=== PATIENT | male | born 1980 | race Two or more races ===

== ENCOUNTER 2023-05-05 18:40 | Emergency (ER) | payer BC ==
[~2023-05-05] VITALS: Ht 165.1 cm; Wt 73.1 kg
[2023-05-05 18:51] VITALS: BP 134/95; PULSE 118; RESP 18; O2SAT 98
[2023-05-05 19:46] LABS: Basophils # (auto) 0 10 ^3/uL (0-0.2); Basophils % (auto) 0.3 % (0.0-2.0); Eosinophils # (auto) 0.1 10 ^3/uL (0-0.8); Hematocrit 47.3 % (41.0-53.0); Hemoglobin 16.7 g/dL (13.5-17.5); Lymphocytes # (auto) 1.2 10 ^3/uL (0.4-5.4); Lymphocytes % (auto) 11.1 % (10.0-50.0); Mean Corpuscular Hgb Conc. 35.3 g/dL (32.0-36.0); Mean Corpuscular Volume 93.4 fL (80.0-100.0); Monocytes # (auto) 0.4 10 ^3/uL (0-1.3); Neutrophils % (auto) 83.6 % (37.0-80.0); Nucleated Red Blood Cells % 0.2 %; Red Blood Cells 5.07 10^6/uL (4.5-5.90); Red Cell Distribution Width 12.6 % (11.8-14.3); White Blood Cell 10.8 10^3/uL (4.4-10.8)
[2023-05-05 19:52] LABS: Chloride 102 mmol/L (98-107); Sodium 137 mmol/L (136-145)
[2023-05-05 19:53] LABS: Anion Gap 7 (5-15); Calcium 9.8 mg/dL (8.5-10.1); Carbon Dioxide 28 mmol/L (20-30)
[2023-05-05 19:58] LABS: BUN/Creatinine Ratio 11.7 (10.0-20.0); Blood Urea Nitrogen 9 mg/dL (9-23); Glucose 89 mg/dL (74-106)
[2023-05-05 21:00] LABS: Urine WBC None Seen /hpf (0 - 3)
[2023-05-05] MEDS ORDERED: KETOROLAC TROMETH 30 MG/ML 1ML VIAL IM ONE (21:00)
[2023-05-05 21:25] LABS: Urine Bacteria NONE SEEN /hpf (None Seen); Urine Blood Negative /uL (Negative); Urine Clarity Clear (Clear); Urine Color Yellow (Yellow); Urine Protein, UAD Negative (Negative); Urine Specific Gravity 1.013 (1.001-1.035); Urine Urobilinogen Normal (Negative)
[2023-05-05] MEDS ORDERED: MET500T PO (21:29)
[2023-05-05] MEDS ORDERED: CIPR-173 PO (21:29)
[2023-05-05] MEDS ORDERED: HYDR-4902 PO (21:31)
[2023-05-05] MEDS ORDERED: ZOFR4T PO (21:32)
== END 2023-05-06 00:41 | disposition home or self-care (01) ==
LOC: ER 18:40
DX: K57.32 Diverticulitis of large intestine without perforation or abscess without bleeding (principal); N20.0 Calculus of kidney; Z79.899 Other long term (current) drug therapy
CPT/HCPCS: 36415; 71250; 74176; 80048; 81001; 85025

== ENCOUNTER 2024-01-27 12:09 | Inpatient (IN) | payer BC ==
[~2024-01-27] VITALS: Ht 165.1 cm; Wt 70.7 kg
[~2024-01-27 12:09] MED LIST: CIPR-173 PO; HYDR-4902 PO; MET500T PO; ZOFR4T PO
[2024-01-27 13:46] LABS: Basophils # (auto) 0.1 10 ^3/uL (0-0.2); Basophils % (auto) 0.9 % (0.0-2.0); Eosinophils # (auto) 0.1 10 ^3/uL (0-0.8); Eosinophils % (auto) 2.2 % (0.0-7.0); Hematocrit 49.3 % (41.0-53.0); Hemoglobin 17.5 g/dL (13.5-17.5); Lymphocytes # (auto) 1.9 10 ^3/uL (0.4-5.4); Lymphocytes % (auto) 28.9 % (10.0-50.0); Mean Corpuscular Hemoglobin 33.9 pg (28.0-32.0); Mean Corpuscular Hgb Conc. 35.5 g/dL (32.0-36.0); Mean Corpuscular Volume 95.5 fL (80.0-100.0); Monocytes # (auto) 0.5 10 ^3/uL (0-1.3); Monocytes % (auto) 7.2 % (0.0-12.0); Neutrophils % (auto) 60.8 % (37.0-80.0); Nucleated Red Blood Cells % 0.2 %; Platelet Count (auto) 219 10^3/uL (140-450); Red Blood Cells 5.16 10^6/uL (4.5-5.90); Red Cell Distribution Width 12.3 % (11.8-14.3); White Blood Cell 6.6 10^3/uL (4.4-10.8)
[2024-01-27 14:11] LABS: Albumin 4.6 g/dL (3.2-4.8); Alkaline Phosphatase 101 U/L (46-116); Anion Gap 7 (5-15); Aspartate Aminotransferase 26 U/L (13-40); BUN/Creatinine Ratio 11.7 (10.0-20.0); Blood Urea Nitrogen 11 mg/dL (9-23); Carbon Dioxide 29 mmol/L (20-31); Chloride 104 mmol/L (98-107); Glucose 93 mg/dL (74-106); Potassium 4.6 mmol/L (3.5-5.1); Sodium 140 mmol/L (136-145)
[2024-01-27 14:14] LABS: Alanine Aminotransferase 56 U/L (7-40); Bilirubin, Total 1.4 mg/dL (0.2-1.0); Calcium 10.6 mg/dL (8.7-10.4)
--- NOTE | 2024-01-27 14:29 | ED.PDOC ---
History of Present Illness HPI Comments 43 y/o M, with Hx of diverticulitis, hemorrhoids, and EtOH use, presents with c/o non-radiating, LLQ abdominal pain and diarrhea for the past 3x days, today. Patient reports unprovoked onset of progressively worsening pain, with intermittent episodes of diarrhea since. Patient comments on having similar symp toms in the past when Dx with diverticulitis with previous ED visit in April 2023. Patient states on being discharged then following Tx and having no complications since. Endorses no recent injuries, sick contact, travel, spoiled food, or substance use/exposure. Patient denies having any nausea, vomiting, blood in stools, fever, chills, or other associated symptoms or modifiers at this time. Chief Complaint: Abdominal Pain Time Seen by MD: 13:20 Primary Care Provider: JANEY Reviewed Notes: Nurses Notes, Medications, Allergies Allergies: Coded Allergies: No Known Drug Allergy (Verified Allergy, Unknown, 05/05/23) Home Meds Active Scripts Ondansetron Odt 4MG Tab (ZOFRAN PO) 4 Mg Tb, 4 MG PO Q8HPRN PRN, #20 TAB ODT TAB-DISSOLVE IN MOUTH, THEN SWALLOW Prov:[facility] 05/05/23 Hydrocodone-Acetaminophen (Hydrocodone Bitartrate/AC 5-325 mg) 1 Tab Tab, 1 TAB PO Q6HP PRN, #15 TAB Prov:[facility] 05/05/23 Ciprofloxacin Hcl (Cipro) 500 Mg Tab, 1 TAB PO BID for 7 Days, #14 TAB Prov:[facility] 05/05/23 Metronidazole (Metronidazole) 500 Mg Tab, 500 MG PO TID for 7 Days, #21 TAB Prov:[facility] 05/05/23 Information Source: Patient Mode of Arrival: Ambulatory Severity: Moderate Timing: Days Duration: Since onset Prehospital treatment: None Past Medical History Past Medical History (Other): diverticulitis, hemorrhoids Surgical History: Denies all surgeries Family History Family History: Reviewed,noncontributory to illness, No family hx of Cancer, No family hx of DM, No family hx of Heart mary, No family hx of HTN, No family hx ofKidney mary, No family hx of Liver mary, No family hx of Lung mary, No family hx of Stroke Social History Smoker: Non-Smoker Alcohol: Occasionally Drugs: Denies Drug Use Lives In: Home Constitutional: denies: chills, diaphoresis, fatigue, fever, malaise, sweats, weakness, others EENTM: denies: blurred vision, double vision, ear bleeding, ear discharge, ear drainage, ear pain, ear ringing, eye pain, eye redness, hearing loss, mouth pain, mouth swelling, nasal discharge, nose bleeding, nose congestion, nose pain, photophobia, tearing, throat pain, throat swelling, voice changes, others Respiratory: denies: cough, hemoptysis, orthopnea, SOB at rest, shortness of breath, SOB with excertion, stridor, wheezing, others Cardiovascular: denies: chest pain, dizzy spells, diaphoresis, Dyspnea on exertion, edema, irregular heart beat, left arm pain, lightheadedness, palpitations, PND, syncope, others Gastrointestinal: reports: abdominal pain, diarrhea; denies: abdomen distended, blood streaked bowels, constipated, dysphagia, difficulty swallowing, hematemesis, melena, nausea, poor appetite, poor fluid intake, rectal bleeding, rectal pain, vomiting, others Genitourinary: denies: burning, dysuria, flank pain, frequency, hematuria, incontinence, penile discharge, penile sore, pain, testicle pain, testicle swe lling, urgency, others Neurological: denies: dizziness, fainting, headache, left sided numbness, left sided weakness, numbness, paresthesia, pre-existing deficit, right sided numbness, right sided weakness, seizure, speech problems, tingling, tremors, weakness, others Musculoskeletal: denies: back pain, gout, joint pain, joint swelling, muscle pain, muscle stiffness, neck pain, others Integumetry: denies: bruises, change in color, change in hair/nails, dryness, laceration, lesions, lumps, rash, wounds, others Allergic/Immunocompromised: denies: Difficulty Healing, Frequent Infections, Hives, Itching, others Hematologic/Lymphatic: denies: anemia, blood clots, easy bleeding, easy bruising, swollen glands, others Endocrine: denies: excessive hunger, excessive sweating, excessive thirst, excessive urination, flushing, intolerance to cold, intolerance to heat, unexplained weight gain, unexplained weight loss, others Psychiatric: denies: anxiety, bipolar disorder, depression, hopeless, panic disorder, schizophrenia, sleepless, suicidal, others All Other Systems: Reviewed and Negative Physical Exam General Appearance: Moderate Distress HEENT: Normal ENT Inspection, Pharynx Normal, TMs Normal Neck: Full Range of Motion, Non-Tender, Normal, Normal Inspection Respiratory: Chest Non-Tender, Lungs Clear, No Accessory Muscle Use, No Respiratory Distress, Normal Breath Sounds Cardiovascular: No Edema, No JVD, No Murmur, No Gallop, Regular Rate/Rhythm Breast Exam: Deferred Gastrointestinal: LLQ, No Organomegaly, No Pulsatile Mass, Normal Bowel Sounds, Soft, Tenderness Genitalia: Deferred Pelvic: Deferred Rectal: Deferred Extremities: No calf tenderness, Normal capillary refill, Normal inspection, Normal range of motion, Non-tender, No pedal edema Musculoskeletal : Apperance: Normal Neurologic: Alert, public health officer II-XII nml as Tested, No Motor Deficits, Normal Affect, Normal Mood, No Sensory Deficits Cerebellar Function: Normal Reflexes: Normal Skin: Dry, Normal Color, Warm Lymphatic: No Adenopathy Was a procedure done? Was a procedure done?: No Differential Dx Considerations may include: diverticulitis, testicular torsion, UTI, acute abdomen X-Ray, Labs, Meds, VS Vital Signs Date Time Temp Pulse Resp B/P (MAP) Pulse Ox O2 Delivery O2 Flow Rate FiO2 01/27/24 12:37 98.0 77 18 131/95 (107) 97 98.0 01/27/24 12:37 98.0 77 18 131/95 (107) 97 Lab Test 01/27/24 16:25 01/27/24 13:33 Range/Units Urine Color Yellow Yellow Urine Clarity Clear Clear Urine pH 5.5 5.0-9.0 Urine Specific [place] 1.025 1.001-1.035 Urine Protein Trace H Negative Urine Ketones Trace Negative Urine Blood Negative Negative /uL Urine Nitrite Negative Negative Urine Bilirubin Negative Negative Urine Urobilinogen Normal Negative mg/dL Urine Leukocyte Esterase Negative Negative /uL Urine RBC <1 0 - 3 /hpf Urine WBC <1 0 - 3 /hpf Urine Squamous Epithelial Cells None seen <5 /hpf Urine Bacteria None seen None Seen /hpf Urine Mucus Few None Seen Urine Glucose Normal Normal mg/dL White Blood Count 6.6 4.4-10.8 10^3/uL Red Blood Count 5.16 4.5-5.90 10^6/uL Hemoglobin 17.5 13.5-17.5 g/dL Hematocrit 49.3 41.0-53.0 % Mean Corpuscular Volume 95.5 80.0-100.0 fL Mean Corpuscular Hemoglobin 33.9 H 28.0-32.0 pg Mean Corpuscular Hemoglobin Concent 35.5 32.0-36.0 g/dL Red Cell Distribution Width 12.3 11.8-14.3 % Platelet Count 219 140-450 10^3/uL Mean Platelet Volume 8.6 6.9-10.8 fL Neutrophils (%) (Auto) 60.8 37.0-80.0 % Lymphocytes (%) (Auto) 28.9 10.0-50.0 % Monocytes (%) (Auto) 7.2 0.0-12.0 % Eosinophils (%) (Auto) 2.2 0.0-7.0 % Basophils (%) (Auto) 0.9 0.0-2.0 % Neutrophils # (Auto) 4.0 1.6-8.6 10 ^3/uL Lymphocytes # (Auto) 1.9 0.4-5.4 10 ^3/uL Monocytes # (Auto) 0.5 0-1.3 10 ^3/uL Eosinophils # (Auto) 0.1 0-0.8 10 ^3/uL Basophils # (Auto) 0.1 0-0.2 10 ^3/uL Nucleated Red Blood Cells 0.2 % Sodium Level 140 136-145 mmol/L Potassium Level 4.6 3.5-5.1 mmol/L Chloride Level 104 98-107 mmol/L Carbon Dioxide Level 29 20-31 mmol/L Anion Gap 7 5-15 Blood Urea Nitrogen 11 9-23 mg/dL Creatinine 0.94 0.700-1.30 mg/dL Glomerular Filtration Rate Calc 104 >90 mL/min BUN/Creatinine Ratio 11.7 10.0-20.0 Serum Glucose 93 74-106 mg/dL Calcium Level 10.6 H 8.7-10.4 mg/dL Total Bilirubin 1.4 H 0.2-1.0 mg/dL Aspartate Amino Transferase (AST) 26 13-40 U/L Alanine Aminotransferase (ALT) 56 H 7-40 U/L Alkaline Phosphatase 101 46-116 U/L Total Protein 8.0 5.7-8.2 g/dL Albumin 4.6 3.2-4.8 g/dL PROCEDURE(s): ABPL - CT AB PEL WO CON-NO ORAL OR IV IMPRESSION: 1. Acute sigmoid diverticulitis without evidence of pericolonic free air or focal fluid collection. 2. Hepatic steatosis. 3. Bilateral nonobstructive renal calculi measuring up to 10 mm. IV Hep-Lock was established The patient was given morphine for the pain and Zofran for the nausea The patient's CBC and chemistry panel are within normal limits The urine test is negative The patient was being started on Flagyl IV piggyback for the acute diverticulitis We discussed the findings with the patient and he is in agreement with the management The patient was admitted Images Reviewed?: Images reviewed and evaluated by me Time of 1ST Reevaluation: 13:50 Reevaluation 1ST: Unchanged Patient Education/Counseling: Diagnosis, Treatment, Prognosis Family Education/Counseling: No Family Present Departure 1 Departure Time of Disposition: 18:50 Impression: Primary Impression: Intractable abdominal pain Additional Impression: Acute diverticulitis Disposition: ADMITTED INPATIENT Admit to: Med Surg Condition: Fair Critical Care Note Critical Care Time?: No Stability Stability form required: Yes Unstable for transfer: ED Physician Assesment (Clinical assesment) Heart Score Heart Score: Heart Score Response (Comments) Value History N/A 0 EKG N/A 0 Age N/A 0 Risk Factors N/A 0 Troponin N/A 0 Total 0 I personally scribed for RANJITH CALHOUN MD ([email or web address]) on 01/27/24 at 14:29. Electronically submitted by Maxwell Izquierdo ([email or web address]). I personally scribed for RANJITH CALOHUN MD ([email or web address]) on 01/27/24 at 16:12. Electronically submitted by Maxwell Izquierdo ([email or web address]). RANJITH CALHOUN MD Jan 27, 2024 14:29
--- NOTE | 2024-01-27 15:01 | DVH ---
CT ABDOMEN AND PELVIS WITHOUT CONTRAST CLINICAL HISTORY: llq pain TECHNIQUE: Multiple contiguous axial images of the abdomen and pelvis without intravenous contrast. The images were reformatted degenerate coronal and sagittal reconstructions. All CT scans at this medical facility are performed using dose modulation techniques as appropriate t o a performed exam including the following:Automated exposure control was utilized; adjustment of the MA and/or KV according to patient size; and use of iterative reconstruction technique. Radiation Dose Information: CT Dose: CTDI volume is 9.5 mGy. Dose-length product is 526.08 mGy*cm Comparison: CT CHST AB PEL WO CON-NO IV/ORAL on DOS: 05/05/23 FINDINGS: Evaluation of the abdomen and pelvis is limited without intravenous contrast. There are multiple diverticula in the sigmoid colon. There is irregular wall thickening with moderate fat stranding surrounding the sigmoid colon compatible with acute diverticulitis. There is no patrick lonic free air or focal fluid collection. The small and large bowel loops demonstrate normal caliber. There are bilateral radiopaque renal calculi, largest in the left midpole measuring 10 mm. There is no hydronephrosis. There is diffuse fatty infiltration of the liver. There is a 1.0 cm left hepatic lobe cyst. The gallbladder, pancreas, adrenal glands, and spleen appear within normal limits. There is no gross evidence of abdominal lymphadenopathy. There is no free fluid or free air. The stomach grossly appears unremarkable. The abdominal aorta and IVC appear within normal limits. The bladder appears unremarkable for the degree of distention. . There is no gross evidence of a pel dennis mass. There is no free fluid collection. Lung bases are clear. There is no acute osseous abnormality. IMPRESSION: 1. Acute sigmoid diverticulitis without evidence of pericolonic free air or focal fluid collection. 2. Hepatic steatosis. 3. Bilateral nonobstructive renal calculi measuring up to 10 mm. HS:Y
[2024-01-27 17:15] LABS: Urine Bacteria None Seen /hpf (None Seen)
[2024-01-27 17:25] LABS: Urine Blood Negative /uL (Negative); Urine Clarity Clear (Clear); Urine Color Yellow (Yellow); Urine Mucus FEW (None Seen); Urine Protein, UAD TRACE (Negative); Urine Specific Gravity 1.025 (1.001-1.035); Urine Urobilinogen Normal (Negative); Urine WBC <1 /hpf (0 - 3); Urine pH 5.5 (5.0-9.0)
[2024-01-27] MEDS ORDERED: HYDROcodone-ACET 5/325MG TAB PO PRN (18:45)
[2024-01-27] MEDS ORDERED: ONDANSETRON HCL 4 MG/2 ML VIAL IV PRN (18:45)
[2024-01-27] MEDS ORDERED: MORPHINE SULFATE INJ 2 MG/ml SYRG IV PRN (18:45)
[2024-01-27] MEDS ORDERED: TEMAZEPAM 15 MG CAP PO PRN (18:45)
[2024-01-27 19:28] VITALS: PULSE 82; RESP 16; O2SAT 98
[2024-01-27] MEDS: ONDANSETRON HCL 4 MG/2 ML VIAL IV ONE (19:55)
[2024-01-27] MEDS: metroNIDAZOLE 500MG/100ML 100 ML IV ONE (19:55)
[2024-01-27] MEDS: MORPHINE SULFATE 4 MG/ML SYR/VIAL IV ONE (19:55)
[2024-01-27] MEDS: SODIUM CHLORIDE 0.9% 500 ML IVB ONE (19:55)
[2024-01-27] MEDS: PANTOPRAZOLE 40 MG TAB PO ONE (21:32)
[2024-01-27 22:00] VITALS: BP 143/91; PULSE 124; RESP 20; TEMP 98.1; O2SAT 91
--- NOTE | 2024-01-27 22:08 | DVHHP2 ---
History of Present Illness Reason for Visit: Abdominal pain History of Present Illness 43-year-old male presents for evaluation of abdominal pain. Patient reports a three day history of left lower quadrant nonradiating sharp pain. States his symptoms have become worse today so he presents for further evaluation. Does reported history of diverticulitis and believes to have a flare-up. Denies fever or chills. No diarrhea. Other acute complaints reported. Past Medical History Diverticulitis Past Surgical History Denies Family History Noncontributory Smoke: No ALCOHOL: occassional Drugs: None Lives: with Family Review of Systems Review of Systems Review of systems are currently negative otherwise addressed in HPI. Allergies: Coded Allergies: No Known Drug Allergy (Verified Allergy, Unknown, 05/05/23) Medications Current Medications Medications Dose Ordered Sig/Cristal Route Start Time Stop Time Status Last Admin Dose Admin Ceftriaxone Sodium 50 ml @ 100 mls/hr DAILY@09 IV 01/28/24 09:00 Metronidazole 100 ml @ 100 mls/hr Q8HR IV 01/27/24 22:00 Pantoprazole Sodium 40 mg DAILY@0600 PO 01/28/24 06:00 Acetaminophen/ Hydrocodone Bitart 1 tab Q4HP PRN PO 01/27/24 18:45 Temazepam 15 mg QHSP PRN PO 01/27/24 18:45 Ondansetron HCl 4 mg Q4HP PRN IV 01/27/24 18:45 Acetaminophen 650 mg Q6HP PRN PO 01/27/24 18:45 Morphine Sulfate 2 mg Q6HPRN PRN IV 01/27/24 18:45 Exam Vital Signs Vital Signs Date Time Temp Pulse Resp B/P (MAP) Pulse Ox O2 Delivery O2 Flow Rate FiO2 01/27/24 19:55 82 16 129/89 01/27/24 19:28 98.0 97 98.0 01/27/24 19:28 Room Air* 0 21 Exam Gen: 43-year-old male mild distress Skin: Warm, dry, normal color and texture, no rash. HEENT: Normocephalic atraumatic, mucous membranes moist and pink. Neck: Cervical and supraclavicular nodes normal without enlargement, trachea is midline, thyroid gland is normal without masses. Pulmonary: Clear to auscultation and percussion bilaterally. Cardiac: Regular rate and rhythm. No murmur Abdomen: Soft, left lower quadrant pain, nondistended, bowel sounds present all 4 quadrants, no guarding, no rigidity, no organomegaly. Extremities: No cyanosis, clubbing, no edema Neuro: Cranial nerves II through XII grossly intact, normal affect and speech, no focal motor deficits. Labs/Xrays ORDERING PHYSICIAN: RANJITH CALHOUN MD PROCEDURE(s): ABPL - CT AB PEL WO CON-NO ORAL OR IV REASON: llq pain ORDER NUMBER(s): [id number], ACCESSION NUMBER(s): [id number] CT ABDOMEN AND PELVIS WITHOUT CONTRAST CLINICAL HISTORY: llq pain TECHNIQUE: Multiple contiguous axial images of the abdomen and pelvis without intravenous contrast. The images were reformatted degenerate coronal and sagittal reconstructions. All CT scans at this medical facility are performed using dose modulation techniques as appropriate to a performed exam including the following:Automated exposure control was utilized; adjustment of the MA and/or KV according to patient size; and use of iterative reconstruction technique. Radiation Dose Information: CT Dose: CTDI volume is 9.5 mGy. Dose-length product is 526.08 mGy*cm Comparison: CT CHST AB PEL WO CON-NO IV/ORAL on DOS: 05/05/23 FINDINGS: Evaluation of the abdomen and pelvis is limited without intravenous contrast. There are multiple diverticula in the sigmoid colon. There is irregular wall thickening with moderate fat stranding surrounding the sigmoid colon compatible with acute diverticulitis. There is no pericolonic free air or focal fluid collection. The small and large bowel loops demonstrate normal caliber. There are bilateral radiopaque renal calculi, largest in the left midpole measuring 10 mm. There is no hydronephrosis. There is diffuse fatty infiltration of the liver. There is a 1.0 cm left hepatic lobe cyst. The gallbladder, pancreas, adrenal glands, and spleen appear within normal limits. There is no gross evidence of abdominal lymphadenopathy. There is no free fluid or free air. The stomach grossly appears unremarkable. The abdominal aorta and IVC appear within normal limits. The bladder appears unremarkable for the degree of distention. . There is no gross evidence of a pelvic mass. There is no free fluid collection. Lung bases are clear. There is no acute osseous abnormality. IMPRESSION: 1. Acute sigmoid diverticulitis without evidence of pericolonic free air or focal fluid collection. 2. Hepatic steatosis. 3. Bilateral nonobstructive renal calculi measuring up to 10 mm. HS:Y Labs Test 01/27/24 16:25 01/27/24 13:33 Range/Units Urine Color Yellow Yellow Urine Clarity Clear Clear Urine pH 5.5 5.0-9.0 Urine Specific [place] 1.025 1.001-1.035 Urine Protein Trace H Negative Urine Ketones Trace Negative Urine Blood Negative Negative /uL Urine Nitrite Negative Negative Urine Bilirubin Negative Negative Urine Urobilinogen Normal Negative mg/dL Urine Leukocyte Esterase Negative Negative /uL Urine RBC <1 0 - 3 /hpf Urine WBC <1 0 - 3 /hpf Urine Squamous Epithelial Cells None seen <5 /hpf Urine Bacteria None seen None Seen /hpf Urine Mucus Few None Seen Urine Glucose Normal Normal mg/dL White Blood Count 6.6 4.4-10.8 10^3/uL Red Blood Count 5.16 4.5-5.90 10^6/uL Hemoglobin 17.5 13.5-17.5 g/dL Hematocrit 49.3 41.0-53.0 % Mean Corpuscular Volume 95.5 80.0-100.0 fL Mean Corpuscular Hemoglobin 33.9 H 28.0-32.0 pg Mean Corpuscular Hemoglobin Concent 35.5 32.0-36.0 g/dL Red Cell Distribution Width 12.3 11.8-14.3 % Platelet Count 219 140-450 10^3/uL Mean Platelet Volume 8.6 6.9-10.8 fL Neutrophils (%) (Auto) 60.8 37.0-80.0 % Lymphocytes (%) (Auto) 28.9 10.0-50.0 % Monocytes (%) (Auto) 7.2 0.0-12.0 % Eosinophils (%) (Auto) 2.2 0.0-7.0 % Basophils (%) (Auto) 0.9 0.0-2.0 % Neutrophils # (Auto) 4.0 1.6-8.6 10 ^3/uL Lymphocytes # (Auto) 1.9 0.4-5.4 10 ^3/uL Monocytes # (Auto) 0.5 0-1.3 10 ^3/uL Eosinophils # (Auto) 0.1 0-0.8 10 ^3/uL Basophils # (Auto) 0.1 0-0.2 10 ^3/uL Nucleated Red Blood Cells 0.2 % Sodium Level 140 136-145 mmol/L Potassium Level 4.6 3.5-5.1 mmol/L Chloride Level 104 98-107 mmol/L Carbon Dioxide Level 29 20-31 mmol/L Anion Gap 7 5-15 Blood Urea Nitrogen 11 9-23 mg/dL Creatinine 0.94 0.700-1.30 mg/dL Glomerular Filtration Rate Calc 104 >90 mL/min BUN/Creatinine Ratio 11.7 10.0-20.0 Serum Glucose 93 74-106 mg/dL Calcium Level 10.6 H 8.7-10.4 mg/dL Total Bilirubin 1.4 H 0.2-1.0 mg/dL Aspartate Amino Transferase (AST) 26 13-40 U/L Alanine Aminotransferase (ALT) 56 H 7-40 U/L Alkaline Phosphatase 101 46-116 U/L Total Protein 8.0 5.7-8.2 g/dL Albumin 4.6 3.2-4.8 g/dL Assessment/Plan Assessment/Plan Assessment Acute diverticulitis Acute abdominal pain Plan [place] [facility] [place]/Flagyl Clear liquid diet Pain management Continue treatment per orders. Plan discussed with: Patient My Orders Orders - MALIK ROSE Procedure Category Date Status Time Ceftriaxone 1gm/50ml PHA 01/28/24 In Process D5w (Rocephin) 09:00 Metronidazole PHA 01/27/24 In Process 500mg/100ml (Flagyl 22:00 Pantoprazole Tablet PHA 01/28/24 In Process (Protonix Tablet) 06:00 Basic Metabolic Panel LAB 01/28/24 Verified 04:00 Admit ADMIT 01/27/24 Transmitted 18:36 Hydrocodone-Acet PHA 01/27/24 In Process 5/325mg Tab ([place] 18:45 Temazepam (Restoril) PHA 01/27/24 In Process 18:45 Ondansetron Hcl PHA 01/27/24 In Process (Zofran) 18:45 Complete Blood Count LAB 01/28/24 Verified 04:00 Condition: Stable [facility] 01/27/24 In Process 18:36 Acetaminophen Tablet PHA 01/27/24 In Process (Tylenol Tablet) 18:45 Clear Liq Diet DIET 01/28/24 Transmitted Breakfast Bedrest With Bathroom HAYLEY 01/27/24 In Process Privileg 18:36 Morphine Sulfate PHA 01/27/24 In Process Injection 18:45 Date of Service: Jan 27, 2024 Billing Provider: MALIK ROES Common Visit Codes: [id number] INP/OBS CARE (HIGH) MALIK ROSE Jan 27, 2024 22:08
[2024-01-27] MEDS: metroNIDAZOLE 500MG/100ML 100 ML IV SCH (22:43)
[2024-01-28 01:07] VITALS: BP 112/83; PULSE 82; RESP 20; TEMP 98.3; O2SAT 99
[2024-01-28 05:00] VITALS: BP 121/87; PULSE 76; RESP 18; TEMP 97.9; O2SAT 97
[2024-01-28] MEDS: PANTOPRAZOLE 40 MG TAB PO SCH (05:09)
[2024-01-28] MEDS: ACETAMINOPHEN 325 MG TAB PO PRN (05:15)
[2024-01-28 06:28] LABS: Chloride 105 mmol/L (98-107); Potassium 4.2 mmol/L (3.5-5.1); Sodium 138 mmol/L (136-145)
[2024-01-28 06:29] LABS: Anion Gap 7 (5-15); Carbon Dioxide 26 mmol/L (20-31)
[2024-01-28 06:34] LABS: BUN/Creatinine Ratio 12.6 (10.0-20.0); Blood Urea Nitrogen 11 mg/dL (9-23); Glucose 94 mg/dL (74-106)
[2024-01-28 06:51] LABS: Basophils # (auto) 0 10 ^3/uL (0-0.2); Basophils % (auto) 0.6 % (0.0-2.0); Eosinophils # (auto) 0.2 10 ^3/uL (0-0.8); Hemoglobin 15.2 g/dL (13.5-17.5); Monocytes # (auto) 0.4 10 ^3/uL (0-1.3); Nucleated Red Blood Cells % 0.2 %; White Blood Cell 5.5 10^3/uL (4.4-10.8)
[2024-01-28 06:53] LABS: Eosinophils % (auto) 4.2 % (0.0-7.0); Hematocrit 41.2 % (41.0-53.0); Lymphocytes # (auto) 1.6 10 ^3/uL (0.4-5.4); Lymphocytes % (auto) 29.9 % (10.0-50.0); Mean Corpuscular Volume 94.7 fL (80.0-100.0); Monocytes % (auto) 7.1 % (0.0-12.0); Neutrophils # (auto) 3.2 10 ^3/uL (1.6-8.6); Neutrophils % (auto) 58.2 % (37.0-80.0); Platelet Count (auto) 191 10^3/uL (140-450); Red Blood Cells 4.34 10^6/uL (4.5-5.90); Red Cell Distribution Width 12.2 % (11.8-14.3)
[2024-01-28 08:05] LABS: Platelet Estimate Adequate
[2024-01-28 08:06] LABS: Anisocytosis Slight; Macrocytosis Slight
[2024-01-28] MEDS: cefTRIAXone 1GM/50ML D5W 50 ML IV SCH (08:36)
[2024-01-28 09:00] VITALS: BP 113/77; PULSE 64; RESP 17; TEMP 97.4; O2SAT 97
[2024-01-28 13:00] VITALS: BP 116/75; PULSE 68; RESP 17; TEMP 97.8; O2SAT 99
[2024-01-28] MEDS ORDERED: AUG875T PO (15:40)
[2024-01-28] MEDS ORDERED: ZOFR4T PO (15:40)
[2024-01-28 17:00] VITALS: BP 119/86; PULSE 74; RESP 18; TEMP 98; O2SAT 98
--- NOTE | 2024-01-28 18:03 | DVHDSRES ---
Discharge Summary Date of Admission Resident Creating Document: PONCE CALDERA RESIDENT Jan 27, 2024 at 18:36 Date of Discharge: Jan 28, 2024 Admitting Diagnosis Acute diverticulitis Acute abdominal pain Wounds: no wounds Labs/Diagnostic Data: Laboratory Results Test 01/28/24 05:47 01/27/24 16:25 01/27/24 13:33 White Blood Count 5.5 10^3/uL (4.4-10.8) Red Blood Count 4.34 10^6/uL (4.5-5.90) Hemoglobin 15.2 g/dL (13.5-17.5) Hematocrit 41.2 % (41.0-53.0) Mean Corpuscular Volume 94.7 fL (80.0-100.0) Mean Corpuscular Hemoglobin 35.0 pg (28.0-32.0) Mean Corpuscular Hemoglobin Concent 37.0 g/dL (32.0-36.0) Red Cell Distribution Width 12.2 % (11.8-14.3) Platelet Count 191 10^3/uL (140-450) Mean Platelet Volume 8.6 fL (6.9-10.8) Neutrophils (%) (Auto) 58.2 % (37.0-80.0) Lymphocytes (%) (Auto) 29.9 % (10.0-50.0) Monocytes (%) (Auto) 7.1 % (0.0-12.0) Eosinophils (%) (Auto) 4.2 % (0.0-7.0) Basophils (%) (Auto) 0.6 % (0.0-2.0) Neutrophils # (Auto) 3.2 10 ^3/uL (1.6-8.6) Lymphocytes # (Auto) 1.6 10 ^3/uL (0.4-5.4) Monocytes # (Auto) 0.4 10 ^3/uL (0-1.3) Eosinophils # (Auto) 0.2 10 ^3/uL (0-0.8) Basophils # (Auto) 0 10 ^3/uL (0-0.2) Nucleated Red Blood Cells 0.2 % Platelet Estimate Adequate Anisocytosis (manual) Slight Macrocytosis Slight Sodium Level 138 mmol/L (136-145) Potassium Level 4.2 mmol/L (3.5-5.1) Chloride Level 105 mmol/L (98-107) Carbon Dioxide Level 26 mmol/L (20-31) Anion Gap 7 (5-15) Blood Urea Nitrogen 11 mg/dL (9-23) Creatinine 0.87 mg/dL (0.700-1.30) Glomerular Filtration Rate Calc 110 mL/min (>90) BUN/Creatinine Ratio 12.6 (10.0-20.0) Serum Glucose 94 mg/dL (74-106) Calcium Level 10.0 mg/dL (8.7-10.4) Urine Color Yellow (Yellow) Urine Clarity Clear (Clear) Urine pH 5.5 (5.0-9.0) Urine Specific [place] 1.025 (1.001-1.035) Urine Protein Trace (Negative) Urine Ketones Trace (Negative) Urine Blood Negative /uL (Negative) Urine Nitrite Negative (Negative) Urine Bilirubin Negative (Negative) Urine Urobilinogen Normal mg/dL (Negative) Urine Leukocyte Esterase Negative /uL (Negative) Urine RBC <1 /hpf (0 - 3) Urine WBC <1 /hpf (0 - 3) Urine Squamous Epithelial Cells None seen /hpf (<5) Urine Bacteria None seen /hpf (None Seen) Urine Mucus Few (None Seen) Urine Glucose Normal mg/dL (Normal) Total Bilirubin 1.4 mg/dL (0.2-1.0) Aspartate Amino Transferase (AST) 26 U/L (13-40) Alanine Aminotransferase (ALT) 56 U/L (7-40) Alkaline Phosphatase 101 U/L (46-116) Total Protein 8.0 g/dL (5.7-8.2) Albumin 4.6 g/dL (3.2-4.8) Other Laboratory Tests 01/28/24 05:47 Brief Hx & Hospital Course: Richie HPI & Hospital course Patient is a 43-year-old male who presented to the ED with a chief complaint of left lower quadrant abdominal pain which started 3 days ago. Patient reported that he initially went to an urgent care center where he was prescribed metronidazole and Warner but it did not relieve the pain. Reported that the pain was severe 9/10 on intensity, constant, worsened with food intake. No associated diarrhea, chills, nausea vomiting, hematochezia or melena. On admission the patient's vitals were stable. CBC normal, BMP normal. CT chest abdomen pelvis without oral or IV contrast revealed acute sigmoid diverticulitis without evidence of pericolonic free air or focal fluid collection, hepatic steatosis. Patient was started on metronidazole 500 mg IV q.8 hours in the hospital. Patient was put on clear liquid diet which she tolerated well without complaining of pain. Patient was discharged in stable condition and advised to continue on full liquid diet for 1 week and then advanced the diet as tolerated. Review of systems Seen and examined at bedside. Alert and oriented x4. Reports mild left lower quadrant abdominal pain which has improved since admission and does not report worsening of abdominal pain with a clear liquid diet. Denies nausea, vomiting, diarrhea, bloating, indigestion. Physical Examination Gen - no pallor, no icterus, no cyanosis, no clubbing, no LAD, no edema . Skin - Patients skin is warm and dry. HEENT - normocephalic, atraumatic, moist mucous membranes. Neck - full ROM, no LAD, no JVD Pulmonary - B/L vesicular breath sounds. no crackles , no wheezing, no stridor. cardiovascular - normal S1,S2 heard. no murmurs heard. peripheral pulses normal radial 2+, pedal 2+. capillary refill normal <2 secs. GI - soft abdomen with mild tenderness to palpation in the left lower quadrant . no hepatospleenomegaly. Bowel sounds normoactive. Neurological - Patient is A/O X 3 . Bilateral upper extremity strength 5/5, bilateral lower extremity strength 5/5, no facial droop, normal speech, no tremor, no sensory deficiets. Discharge plan Patient was advised to continue on full liquid diet for 1 week and advanced as tolerated. Given Augmentin 875 mg b.i.d. for 5 days Ondansetron 4 mg p.o. q.4 p.r.n. for nausea Advised to follow up with the PCP and follow up in the discharge clinic in 1 Consults/Reason for consult no consultation Operations or Procedures CT abdomen pelvis without oral or IV contrast FINDINGS: Evaluation of the abdomen and pelvis is limited without intravenous contrast. There are multiple diverticula in the sigmoid colon. There is irregular wall thickening with moderate fat stranding surrounding the sigmoid colon compatible with acute diverticulitis. There is no pericolonic free air or focal fluid collection. The small and large bowel loops demonstrate normal caliber. There are bilateral radiopaque renal calculi, largest in the left midpole measuring 10 mm. There is no hydronephrosis. There is diffuse fatty infiltration of the liver. There is a 1.0 cm left hepatic lobe cyst. The gallbladder, pancreas, adrenal glands, and spleen appear within normal limits. There is no gross evidence of abdominal lymphadenopathy. There is no free fluid or free air. The stomach grossly appears unremarkable. The abdominal aorta and IVC appear within normal limits. The bladder appears unremarkable for the degree of distention. . There is no gross evidence of a pelvic mass. There is no free fluid collection. Lung bases are clear. There is no acute osseous abnormality. IMPRESSION: 1. Acute sigmoid diverticulitis without evidence of pericolonic free air or focal fluid collection. 2. Hepatic steatosis. 3. Bilateral nonobstructive renal calculi measuring up to 10 mm. Condition at Discharge: Good Final Diagnosis/Problems List # Acute abdominal pain # Acute sigmoid diverticulitis # Hepatic steatosis. # Bilateral nonobstructive renal calculi Discharge Disposition: Home Discharge Instruct/Medications Diet: See Comment Diet comment: Full liquid diet for one week and then advance diet as tolerated Avoid food with seeds Drink more water Activity: No Restrictions, As Tolerated Follow Up/Referral: Follow up in the discharge clinic in one week Follow up in the GI outpatient clinic for recurrent diverticulitis Medications: as per EMR Discharge Statement: "Patient was advised to return to the ER or call 911 if any headaches, dizziness, shortness of breath, chest pain, abdominal pain, bleeding, fevers, or worsening of medical condition. Patient was counseled about treatment plan, medications, possible side effects, patientverbalized understanding. All questions were answered to the best of my ability. This discharge took greater then 30 minutes in planning, reviewing documentation, counseling the patient, and discussing with other team members." ASSESSMENT ASSESSMENT Assessment # Acute abdominal pain # Acute sigmoid diverticulitis # Hepatic steatosis. # Bilateral nonobstructive renal calculi PONCE CALDERA RESIDENT Jan 28, 2024 18:03
[2024-01-28 18:07] VITALS: TEMP 36.7
== END 2024-01-28 18:30 | disposition home or self-care (01) | DRG 392 ==
LOC: ER 12:09 → OVERFLOW 18:36 → WEST WING 22:00
PROVIDERS: ADMIT Student in an Organized Health Care Education/Training Program; ATTEND Student in an Organized Health Care Education/Training Program
DX: K57.32 Diverticulitis of large intestine without perforation or abscess without bleeding (principal); K76.0 Fatty (change of) liver, not elsewhere classified; N20.0 Calculus of kidney; Z79.899 Other long term (current) drug therapy
CPT/HCPCS: 36415; 74176; 80048; 80053; 81001; 85025; G0378; J2405; J3490

== ENCOUNTER 2024-05-14 09:07 | Day surgery (SDC) | payer BC ==
[2024-05-11 12:37] LABS: INR 0.98 (0.9-1.15); Partial Thromboplastin Time 30.1 SEC (24.5-34.5); Prothrombin Time 10.4 sec (9.3-11.8)
[2024-05-11 12:55] LABS: Basophils # (auto) 0 10 ^3/uL (0-0.2); Basophils % (auto) 0.7 % (0.0-2.0); Eosinophils # (auto) 0.2 10 ^3/uL (0-0.8); Eosinophils % (auto) 5.1 % (0.0-7.0); Hematocrit 49.2 % (41.0-53.0); Hemoglobin 17.3 g/dL (13.5-17.5); Lymphocytes % (auto) 45.9 % (10.0-50.0); Mean Corpuscular Hemoglobin 32.7 pg (28.0-32.0); Mean Corpuscular Hgb Conc. 35.2 g/dL (32.0-36.0); Monocytes # (auto) 0.3 10 ^3/uL (0-1.3); Monocytes % (auto) 6.2 % (0.0-12.0); Neutrophils # (auto) 1.9 10 ^3/uL (1.6-8.6); Neutrophils % (auto) 42.1 % (37.0-80.0); Nucleated Red Blood Cells % 0.7 %; Platelet Count (auto) 189 10^3/uL (140-450); Red Blood Cells 5.29 10^6/uL (4.5-5.90); White Blood Cell 4.5 10^3/uL (4.4-10.8)
[2024-05-11 13:06] LABS: Albumin 4.7 g/dL (3.2-4.8); Alkaline Phosphatase 111 U/L (46-116); Anion Gap 6 (5-15); Aspartate Aminotransferase 28 U/L (13-40); BUN/Creatinine Ratio 13.6 (10.0-20.0); Blood Urea Nitrogen 12 mg/dL (9-23); Calcium 10.1 mg/dL (8.7-10.4); Carbon Dioxide 27 mmol/L (20-31); Chloride 107 mmol/L (98-107); Glucose 97 mg/dL (74-106); Potassium 4.6 mmol/L (3.5-5.1); Sodium 140 mmol/L (136-145); Total Protein 7.8 g/dL (5.7-8.2)
[2024-05-11 13:07] LABS: Bilirubin, Total 0.8 mg/dL (0.2-1.0)
[2024-05-11 13:08] LABS: Alanine Aminotransferase 60 U/L (7-40)
[~2024-05-14] VITALS: Ht 167.6 cm; Wt 70.3 kg
[~2024-05-14 09:07] MED LIST changes: +CETI10CA PO; -CIPR-173 PO; -HYDR-4902 PO; -MET500T PO; +OMEP20TA PO; -ZOFR4T PO
[2024-05-14] MEDS: MIDAZOLAM HCL 5 MG/ML-1ML VIAL ONE (10:46)
[2024-05-14] MEDS: fentaNYL CITRATE 100 MCG/2 ML VL ONE (10:46)
--- NOTE | 2024-05-14 11:07 | DVHNC2 ---
Procedure - DATE OF PROCEDURE: May 14, 2024 SURGEON: NOBLE HARDY MD REFERRING PROVIDER: Dr. Dinesh STRATTON PROCEDURE PERFORMED: 1 Colonoscopy with moderate sedation PRE-PROCEDURE DIAGNOSIS: 1. History of diverticulitis POSTPROCEDURE DIAGNOSIS: 1. Moderate pandiverticulosis 2. Small internal hemorrhoids INDICATIONS FOR PROCEDURE: The patient is a 43-year-old male who presents for a pressure colonoscopy for history of diverticulitis MEDICATIONS USED: 7 mg of Versed IV and 100 mcg IV given in incremental doses DETAILS OF THE PROCEDURE: Informed consent was obtained after risks, benefits, and alternatives, were discussed at length with the patient. The patient gave consent to the procedure as well as the medication used for sedation. The patient was placed in the left lateral decubitus position. Digital rectal exam showed internal hemorrhoids. An Olympus variable torsion pediatric colonoscope was inserted into the rectum and advanced to the cecum. The cecum was identified by the ileocecal valve and the appendiceal orifice. The scope was then withdrawn. The prep was excellent with only small amounts of liquid stool. There were no large polyps masses strictures or arteriovenous malformations. Moderate diverticulosis was noted throughout the colon. Retroflexion showed internal hemorrhoids. Six weeks with withdrawal time was noted. The patient tolerated the procedure well. [place] BOWEL PREP SCORE: 9 COLONOSCOPY START TIME: 1051 CECUM TIME: 1054 COLONOSCOPY END TIME:1100 IMPRESSION: 1. Moderate diverticulosis throughout 2. Internal hemorrhoids RECOMMENDATIONS: 1. Follow up in GI clinic for procedure results 2. High-fiber diet 3. Follow up with primary care physician 4. Repeat colonoscopy in 7-10 years unless otherwise indicated I WOULD LIKE TO THANK DR. TOTH FOR THIS REFERRAL NOBLE HARDY MD May 14, 2024 11:07
[2024-05-14 11:30] VITALS: BP 119/71; PULSE 80; RESP 13; O2SAT 97
== END 2024-05-14 11:32 | disposition home or self-care (01) ==
LOC: GI 09:07 → EDUNIT# 11:00 → GI 11:32
PROVIDERS: ATTEND Specialist
DX: Z12.11 Encounter for screening for malignant neoplasm of colon (principal); K57.30 Diverticulosis of large intestine without perforation or abscess without bleeding; K64.8 Other hemorrhoids; K76.0 Fatty (change of) liver, not elsewhere classified; K21.9 Gastro-esophageal reflux disease without esophagitis; Z79.899 Other long term (current) drug therapy
CPT/HCPCS: 36415; 45378; 80053; 85025; 85610; 85730; J2250; J3010; 99152

== ENCOUNTER → 2024-12-12 | Outpatient (CLI) | payer BC ==
[2024-12-12 11:29] LABS: Hematocrit 47.3 % (41.0-53.0); Hemoglobin 16.9 g/dL (13.5-17.5); Mean Corpuscular Hemoglobin 33.6 pg (28.0-32.0); Mean Corpuscular Volume 94.0 fL (80.0-100.0); Nucleated Red Blood Cells % 0.1 %
[2024-12-12 11:33] LABS: Urine Protein, UAD Negative (Negative)
[2024-12-12 12:03] LABS: Alanine Aminotransferase 36 U/L (7-40); Anion Gap 9 (5-15); BUN/Creatinine Ratio 11.3 (10.0-20.0); Blood Urea Nitrogen 9 mg/dL (9-23); Calcium 9.2 mg/dL (8.7-10.4); Carbon Dioxide 26 mmol/L (20-31); Chloride 104 mmol/L (98-107); Glucose 93 mg/dL (74-106); Potassium 4.2 mmol/L (3.5-5.1); Sodium 139 mmol/L (136-145); Total Protein 7.6 g/dL (5.7-8.2); Triglycerides 102 mg/dL (< 150)
[2024-12-12 12:04] LABS: Albumin 4.4 g/dL (3.2-4.8); Cholesterol 157 mg/dL (< 200); HDL Cholesterol 50 mg/dL (40-59)
[2024-12-12 12:05] LABS: Bilirubin, Total 0.8 mg/dL (0.2-1.0)
[2024-12-12 12:11] LABS: Alkaline Phosphatase 120 U/L (46-116)
== END | disposition home or self-care (01) ==
LOC: LAB 10:43
PROVIDERS: ATTEND Student in an Organized Health Care Education/Training Program
DX: E55.9 Vitamin D deficiency, unspecified (principal); Z00.00 Encounter for general adult medical examination without abnormal findings
CPT/HCPCS: 36415; 80053; 80061; 81001; 82306; 83036; 84443; 85025